=== PATIENT | male | born 1955 | race Caucasian/White ===

== ENCOUNTER → 2016-08-22 | Outpatient (CLI) | payer BC ==
[~2016-08-22] MED LIST: AUGMENTIN PO
--- NOTE | ~2016-08-22 | US5 ---
[facility] A Service of [facility] / [facility] RADIOLOGY TEXT RESULTS PATIENT: OTILIA JOSE LOCATION: SGUS : 59 UNIT #: [id number] AGE: [address]: Antonio Sandoval MD SEX: M ORDER DR: [id number] [address] [address] [id number] O MR#: [id number] Acc #: [id number] NAME: OTILIA JOSE : 1955 SEX: M STUDY DATE/TIME: 08/22/2016 9:07 UNIT: [facility]US ROOM: STUDY DESCRIPTION: US Abdominal Complete Attending Physician: Antonio Sandoval III, M.D. Referring Physician: Antonio Sandoval III, M.D. Ordering Physician: Antonio Sandoval III, M.D. Primary Care Physician: No Primary Care Physician MEDICAL IMAGING REPORT This report is preliminary unless electronic signature is present. EXAM Abdominal ultrasound, complete, 08/22/2016. INDICATION Hepatitis C virus in a 61-year-old male. Chronic hepatitis C. TECHNIQUE Sonographic imaging of the abdomen was performed. COMPARISON 08/25/2015 FINDINGS The pancreas is not well visualized or assessed. Survey images of the liver demonstrate no focal mass, intrahepatic ductal dilatation, or ascites. The liver measures 16.5 cm long axis. The kidneys are nonobstructed with the right measuring 10.8 cm long axis and the left 11.1 cm. No shadowing stone on either side. The gallbladder is sonographically unremarkable. Extrahepatic common bile duct measures about 3 mm. Aorta and IVC unremarkable to the extent visualized. Spleen unremarkable, measuring 11.9 cm. IMPRESSION Negative abdominal ultrasound. Dictated by... Jama Jones M.D. THIS IS AN ELECTRONICALLY VERIFIED REPORT Jama Jones M.D. at 08/22/2016 4:48 PM [facility] A Service of [facility] / [facility] RADIOLOGY TEXT RESULTS PATIENT: OTILIA JOSE LOCATION: [facility] : 59 UNIT #: [id number] AGE: [address]: Antonio Sandoval MD SEX: M ORDER DR: ROSA/stevo TD: 08/22/2016 13:42 JOB #: [id number] MEDICAL IMAGING REPORT Page 1 of 1
== END | disposition home or self-care (01) ==
LOC: SGUS 08:49
DX: B18.2 Chronic viral hepatitis C (principal)
CPT/HCPCS: 76700